=== PATIENT | female | born 1960 | race Caucasian/White ===

== ENCOUNTER → 2017-01-09 | Outpatient (CLI) | payer OTHER ==
[~2017-01-09] MED LIST: DENOSUMAB 60 MG/ML 1 ML SYRINGE SQ NR
[2017-01-09 11:43] VITALS: BP 129/76; PULSE 107; RESP 16; TEMP 99
== END ==
LOC: PROCWHC3 11:21
PROVIDERS: ATTEND Internal Medicine Hematology & Oncology
DX: M81.0 Age-related osteoporosis without current pathological fracture (principal)
CPT/HCPCS: 96372; J0897

== ENCOUNTER → 2018-01-01 | Outpatient (CLI) | payer OTHER ==
--- NOTE | 2018-01-01 11:37 | XR ---
EXAMINATION TYPE: XR tibia fibula RT DATE OF EXAM: 01/01/2018 CLINICAL HISTORY: Contusion injury with pain. TECHNIQUE: Two views of the right leg are obtained. COMPARISON: None. FINDINGS: There is no acute fracture or dislocation seen in the right tibia or fibula. Moderate join t space loss patellofemoral compartment is seen. Mild to moderate joint space loss with mild spurring medial tibiofemoral compartment is present. Visualized portion of ankle joint is within normal limit s. The overlying soft tissue appears unremarkable. IMPRESSION: There is no acute fracture or dislocation seen in the right tibia or fibula.
== END | disposition home or self-care (01) ==
LOC: RADXRMAIN 11:12
PROVIDERS: ATTEND Emergency Medicine
DX: S80.11XA Contusion of right lower leg, initial encounter (principal)

== ENCOUNTER → 2018-02-15 | Outpatient (CLI) | payer OTHER ==
[~2018-02-15] MED LIST changes: -DENOSUMAB 60 MG/ML 1 ML SYRINGE SQ NR; +DENOSUMAB 60 MG/ML 1 ML SYRINGE SQ ONE
[2018-02-15 14:31] VITALS: BP 132/86; PULSE 106; RESP 16; TEMP 98.5
== END | disposition home or self-care (01) ==
LOC: PROCWHC3 14:06
PROVIDERS: ATTEND Internal Medicine Hematology & Oncology
DX: M81.0 Age-related osteoporosis without current pathological fracture (principal)
CPT/HCPCS: 96372; J0897

== ENCOUNTER → 2019-05-13 | Outpatient (CLI) | payer OTHER ==
[2019-05-13 10:00] LABS: HCT 40.9 % (34.0-46.0); MCH 33.2 pg (25.0-35.0); MCHC 34.2 g/dL (31.0-37.0); MCV 97.1 fL (80.0-100.0); Mean Platelet Volume 6.5; Platelet Count 200 k/uL (150-450); RBC 4.21 m/uL (3.80-5.40); RDW 12.1 % (11.5-15.5); WBC 5.3 k/uL (3.8-10.6)
[2019-05-13 16:07] LABS: African American GFR (CKD) 93.5 (60.0-200.0); Albumin 4.2 g/dL (3.80-4.90); Albumin/Globulin Ratio 1.91 (1.60-3.17); Anion Gap 7.5 mmol/L (4.00-12.00); BUN/Creat Ratio 21.25 Ratio (12.00-20.00); Calcium 9.4 mg/dL (8.7-10.3); Carbon Dioxide 28.5 mmol/L (21.6-31.8); Globulin 2.2 g/dL (1.6-3.3); Potassium 4.3 mmol/L (3.5-5.5); Total Bilirubin 0.4 mg/dL (0.3-1.2); Total Protein 6.4 g/dL (6.2-8.2)
[2019-05-13 16:15] LABS: T4, Free (Free Thyroxine) 1.6 ng/dL (0.80-1.80)
[2019-05-13 17:50] LABS: Hemoglobin A1C 5.3 % (4.0-6.0)
== END | disposition home or self-care (01) ==
LOC: LABWHC1 09:17
PROVIDERS: ATTEND Internal Medicine Endocrinology, Diabetes & Metabolism
DX: E03.8 Other specified hypothyroidism (principal); R53.83 Other fatigue; R35.8 Other polyuria
CPT/HCPCS: 36415; 80053; 82024; 82533; 82607; 83036; 84146; 84439; 84443; 84481; 85027

== ENCOUNTER → 2019-08-25 | Outpatient (CLI) | payer OTHER | END | disposition home or self-care (01) | LOC: LABWHC1 08:23 | PROVIDERS: ATTEND Internal Medicine Endocrinology, Diabetes & Metabolism | DX: E03.8 Other specified hypothyroidism (principal) | CPT/HCPCS: 36415; 84443 ==

== ENCOUNTER → 2020-03-02 | Outpatient (CLI) | payer OTHER | END | disposition home or self-care (01) | LOC: LABWHC1 11:57 | PROVIDERS: ATTEND Internal Medicine Endocrinology, Diabetes & Metabolism | DX: E03.8 Other specified hypothyroidism (principal) | CPT/HCPCS: 36415; 84443 ==

== ENCOUNTER → 2021-07-22 | Outpatient (CLI) | payer OTHER ==
--- NOTE | 2021-07-22 14:03 | XR ---
EXAMINATION TYPE: XR tibia fibula RT DATE OF EXAM: 07/22/2021 COMPARISON: 01/01/2018 HISTORY: Contusion lower extremity TECHNIQUE: 2 view right tibia and fibula FINDINGS: There is spurring from the medial tibial plateau and medial femoral condyle. A small spur i s present in the lateral femoral condyle. Joint spaces are preserved. No acute fracture or dislocatio n is evident. Soft tissues are normal. Follow up exams can be performed 7-10 days from acute trauma for continued pain. IMPRESSION: 1. No acute or subacute osseous abnormality right tibia and fibula.
== END | disposition home or self-care (01) ==
LOC: RADXRMAIN 13:45
PROVIDERS: ATTEND Emergency Medicine
DX: S80.01XA Contusion of right knee, initial encounter (principal)

== ENCOUNTER → 2021-07-25 | Outpatient (CLI) | payer OTHER ==
--- NOTE | 2021-07-25 07:56 | US ---
EXAMINATION TYPE: US liver DATE OF EXAM: 07/25/2021 COMPARISON: NONE CLINICAL HISTORY: 61-year-old female R74.01 ELEVATION OF LIVER TRANSAMINASE LEVELS. Elevated labs, ep isodes of chest pain TECHNIQUE: Multiple sonographic images of the right upper quadrant are obtained. FINDINGS: EXAM MEASUREMENTS: Liver Length: 15.7 cm Gallbladder Wall: 0.2 cm CBD: 0.3 cm Right Kidney: 10.6 x 4.9 x 5.2 cm Pancreas: Suboptimal visualization of the pancreatic tail due to shadowing from bowel gas. Visualize d portions show no gross abnormality. Liver: Relatively homogeneous appearance. No focal lesion. Gallbladder: Gallstones measuring up to 7 mm present. No hydropic change. No wall thickening or surr ounding fluid. Evidence for sonographic He's sign: No CBD: wnl Right Kidney: wnl without hydronephrosis. IMPRESSION: 1. Cholelithiasis with a couple gallstones measuring up to 7 mm. No ancillary findings of acute zach cystitis. 2. No biliary ductal dilatation.
== END | disposition home or self-care (01) ==
LOC: RADUSWWP 07:01
PROVIDERS: ATTEND Family Medicine
DX: K80.20 Calculus of gallbladder without cholecystitis without obstruction (principal)
CPT/HCPCS: 76705